=== PATIENT | female | born 1980 | race Caucasian/White ===

== ENCOUNTER → 2017-03-20 | Outpatient (CLI) | payer BC ==
[~2017-03-20] MED LIST: BIRTH CONTROL PILL; FLORINEF ACETA0.1 MG PO; INDERAL 10MG10 MG PO; INDERAL 20MG20 MG PO; KLONOPIN 1MG1 MG PO; MOTRIN 800800 MG/TAB PO; NORCO 325 MG-7.1 TAB PO; PERCOCET 325 MG1 TA2 PO; PROBIOTIC-MAJOR PO; ROXICODONE 55 MG/TAB PO; VIIBRYD10 MG PO; VYBRID PO
== END ==
LOC: COL.LAB 13:25
DX: Z01.89 Encounter for other specified special examinations (principal)

== ENCOUNTER → 2018-09-30 | Outpatient (CLI) | payer BC | LOC: ZCOL.LAB 12:00 | DX: R07.9 Chest pain, unspecified (principal) ==

== ENCOUNTER → 2021-08-11 | Outpatient (CLI) | payer BC | LOC: MC.RAD 09:15 | DX: N63.20 Unspecified lump in the left breast, unspecified quadrant (principal) ==

== ENCOUNTER → 2021-11-07 | Outpatient (CLI) | payer BC | LOC: MC.RAD 13:00 | DX: N62 Hypertrophy of breast (principal); N64.89 Other specified disorders of breast ==

== ENCOUNTER → 2023-08-01 | Outpatient (CLI) | payer BC | LOC: MHCPAIN 12:36 | DX: M47.892 Other spondylosis, cervical region (principal); M54.12 Radiculopathy, cervical region | CPT/HCPCS: G0463 ==

== ENCOUNTER 2024-07-16 14:51 | Emergency (ER) | payer BC ==
[~2024-07-16] VITALS: Ht 175.3 cm; Wt 70.5 kg
[2024-07-16 14:56] VITALS: TEMP 97
[2024-07-16 15:56] LABS: BASO % 0.5 % (0.0-2.0); EOS # 0.1 K/mm3 (0.0-0.7); EOS % 0.9 % (0.0-4.0); GRAN # 3.1 K/mm3 (1.4-6.5); HEMATOCRIT 40.4 % (37.0-47.0); HEMOGLOBIN 13.9 g/dl (12.5-16.0); LYMPH # 2.9 K/mm3 (1.2-3.4); MEAN CELL VOLUME 89 fl (80.0-100.0); MEAN CORPUSCULAR HEMOGLOBIN 31 pg (27-31); MEAN CORPUSCULAR HGB CONC 34 g/dl (33.0-37.0); MEAN PLATELET VOLUME 10.1 fl (7.4-10.4); MONO # 0.4 K/mm3 (0.1-0.6); MONO % 5.4 % (1.7-9.3); PLATELET COUNT 245 K/mm3 (130-400); RED BLOOD COUNT 4.55 M/mm3 (4.10-5.30); REDCELL DISTRIBUTION WIDTH-CV 11.4 % (11.5-14.5)
[2024-07-16 16:19] LABS: ALANINE AMINOTRANSFERASE 12 U/L (0-55); ALBUMIN 4.3 g/dL (3.5-5.0); ALKALINE PHOSPHATASE 60 U/L (40-150); ANION GAP 9 mmol/L (7-16); AST,SGOT 19 U/L (5-34); BILIRUBIN,TOTAL 0.5 mg/dL (0.2-1.2); BLOOD UREA NITROGEN 11 mg/dL (7-19); CHLORIDE 107 mEq/L (98-107); CREATININE, serum 1.02 mg/dL (0.57-1.11); GLUCOSE 90 mg/dL (70-99); LIPASE 36 U/L (8-78); POTASSIUM 3.9 mEq/L (3.5-4.5); SODIUM 142 mEq/L (136-145); TOTAL PROTEIN 7.3 g/dl (6.2-8.1)
[2024-07-16 16:40] LABS: TSH w REFLEX 0.272 uIU/mL (0.350-4.940)
[2024-07-16 16:42] LABS: TROPONIN-I < 0.010 ng/mL (0.00-0.033)
[2024-07-16 17:34] VITALS: BP 107/76; PULSE 52
== END 2024-07-16 17:44 | disposition home or self-care (01) ==
LOC: COL.ER 14:51
PROVIDERS: Emergency Medicine
DX: R00.2 Palpitations (principal); E03.9 Hypothyroidism, unspecified

== ENCOUNTER → 2024-09-10 | Outpatient (CLI) | payer BC | LOC: MC.RAD 10:30 | DX: Z12.31 Encounter for screening mammogram for malignant neoplasm of breast (principal); Z98.82 Breast implant status ==